=== PATIENT | male | born 1990 | race Native Hawaiian/Other Pacific Islander ===

== ENCOUNTER 2018-12-05 07:50 | Emergency (ER) | payer OTHER ==
[2018-12-05 08:32] VITALS: RESP 18
[2018-12-05 08:48] LABS: BASO # 0.1 K/uL (0.0-0.2); BASO % 0.7 % (0.0-2.0); EOS # 0.1 K/uL (0.0-0.7); EOS % 1.4 % (0.0-4.0); HEMOGLOBIN 17.3 g/dL (12.0-18.0); LYMPH # 4.3 K/uL (1.0-4.3); LYMPH % 43.7 % (20.0-40.0); MEAN CELL VOLUME 79.5 fL (80.0-94.0); MEAN CORPUSCULAR HEMOGLOBIN 26.5 pg (27.0-31.0); MEAN CORPUSCULAR HGB CONC 33.3 g/dL (33.0-37.0); MEAN PLATELET VOLUME 8.1 fL (7.2-11.7); MONO # 0.5 K/uL (0.0-0.8); MONO % 5.2 % (0.0-10.0); NEUT # 4.8 K/uL (1.8-7.0); NRBC % 0.1 % (0.0-2.0); RBC 6.54 Mil/uL (4.40-5.90); RED CELL DISTRIBUTION WIDTH 13.7 % (11.5-14.5); WHITE BLOOD COUNT 9.8 K/uL (4.8-10.8)
[2018-12-05 09:00] LABS: ALB/GLOB RATIO 1.3 (1.0-2.1); ALBUMIN 5.2 g/dL (3.5-5.0); ALT/SGPT 41 U/L (21-72); AST/SGOT 28 U/L (17-59); BLOOD UREA NITROGEN 12 mg/dL (9-20); CALCIUM 9.7 mg/dl (8.6-10.4); GFR NON-AFRICAN AMERICAN > 60
[2018-12-05 09:02] LABS: URINE BILIRUBIN NEGATIVE (NEGATIVE); URINE BLOOD NEGATIVE (NEGATIVE); URINE CLARITY Clear (Clear); URINE COLOR Yellow (YELLOW); URINE GLUCOSE (UA) NORMAL (Normal); URINE LEUKOCYTE ESTERASE NEG Leu/uL (Negative); URINE PROTEIN 1+ mg/dL (NEGATIVE); URINE UROBILINOGEN NORMAL mg/dL (0.2-1.0)
[2018-12-05 09:13] VITALS: O2SAT 100
[2018-12-05 09:17] LABS: CK-MB < 0.22 ng/mL (0.0-3.38)
[2018-12-05 09:20] LABS: BARBITURATES, UR NEGATIVE (NEGATIVE); BENZODIAZEPINES, UR NEGATIVE (NEGATIVE); OPIATES, UR NEGATIVE (NEGATIVE); PHENCYCLIDINE, UR NEGATIVE (NEGATIVE)
--- NOTE | 2018-12-05 10:08 | C.PDOC ---
History Of Present Illness 28 y/o male presents to the ER complaining of left sided chest pain which began in the morning today. Patient states that the pain lasted several minutes with resolution. Patient describes the pain as "heaviness" and notes that the pain is non-radiating. He states that he has some exertional shortness of breath with walking. He notes that he has family history of cardiac disease, his father and grandfather had FL's in their 40's. Denies having hx of similar episodes, fever,chills, cough, palpitations, nausea, vomiting, abdominal pain,hx of anxiety, and hx of smoking. Time Seen by Provider: 12/05/18 08:03 Chief Complaint (Nursing): Shortness Of Breath History Per: Patient History/Exam Limitations: no limitations Onset/Duration Of Symptoms: Days Current Symptoms Are (Timing): Still Present Severity: Moderate Past Medical History Reviewed: Historical Data, Nursing Documentation, Vital Signs Vital Signs: Last Vital Signs Temp 98 F 12/05/18 07:57 Pulse 105 H 12/05/18 09:12 Resp 18 12/05/18 09:12 BP 169/88 H 12/05/18 09:12 Pulse Ox 100 12/05/18 09:12 - Medical History PMH: No Chronic Diseases Family History: States: No Known Family Hx - Social History Hx Alcohol Use: Yes Hx Substance Use: No - Immunization History Hx Tetanus Toxoid Vaccination: No Hx Influenza Vaccination: No Hx Pneumococcal Vaccination: No Review Of Systems Except As Marked, All Systems Reviewed And Found Negative. Constitutional: Negative for: Fever, Chills Cardiovascular: Positive for: Chest Pain Respiratory: Positive for: Shortness of Breath Gastrointestinal: Negative for: Nausea, Vomiting, Abdominal Pain Physical Exam - Physical Exam Appears: Other (anxious) Skin: Normal Color, Warm, Dry Head: Atraumatic, Normacephalic Eye(s): bilateral: Normal Inspection Nose: Normal Oral Mucosa: Moist Neck: Supple Chest: Symmetrical Cardiovascular: Rhythm Regular (with tachycardia) Respiratory: Normal Breath Sounds, No Rales, No Rhonchi, No Wheezing Gastrointestinal/Abdominal: Normal Exam, Soft, No Tenderness, No Guarding, No Rebound Extremity: Normal ROM, Other (no leg edema) Neurological/Psych: Oriented x3, Normal Speech ED Course And Treatment - Laboratory Results Result Diagrams: 12/05/18 08:04 12/05/18 08:04 Lab Results: Troponin I < 0.0120 ng/mL (0.00-0.120) 12/05/18 08:04 Total Bilirubin 0.6 mg/dL (0.2-1.3) 12/05/18 08:04 AST 28 U/L (17-59) 12/05/18 08:04 ALT 41 U/L (21-72) 12/05/18 08:04 Alkaline Phosphatase 130 U/L (38-126) H 12/05/18 08:04 Total Protein 9.0 g/dL (6.3-8.3) H 12/05/18 08:04 Albumin 5.2 g/dL (3.5-5.0) H 12/05/18 08:04 Globulin 3.9 gm/dL (2.2-3.9) 12/05/18 08:04 Albumin/Globulin Ratio 1.3 (1.0-2.1) 12/05/18 08:04 Urine Color Yellow (YELLOW) 12/05/18 08:42 Urine Clarity Clear (Clear) 12/05/18 08:42 Urine pH 5.0 (5.0-8.0) 12/05/18 08:42 Ur Specific [place] 1.017 (1.003-1.030) 12/05/18 08:42 Urine Protein 1+ mg/dL (NEGATIVE) H 12/05/18 08:42 Urine Glucose (UA) Normal mg/dL (Normal) 12/05/18 08:42 Urine Ketones Negative mg/dL (NEGATIVE) 12/05/18 08:42 Urine Blood Negative (NEGATIVE) 12/05/18 08:42 Urine Nitrate Negative (NEGATIVE) 12/05/18 08:42 Urine Bilirubin Negative (NEGATIVE) 12/05/18 08:42 Urine Urobilinogen Normal mg/dL (0.2-1.0) 12/05/18 08:42 Ur Leukocyte Esterase Neg Adam/uL (Negative) 12/05/18 08:42 Urine WBC (Auto) 2 /hpf (0-5) 12/05/18 08:42 Urine RBC (Auto) < 1 /hpf (0-3) 12/05/18 08:42 ECG: Interpreted By Me, Viewed By Me ECG Rhythm: Sinus Tachycardia Interpretation Of ECG: Sinus Tachycardia with normal axises and no acute ST/ T wave changes Rate From EC O2 Sat by Pulse Oximetry: 100 (RA) Pulse Ox Interpretation: Normal - Radiology CXR: Interpreted by Me, Viewed By Me CXR Interpretation: Yes: No Acute Disease, Other (no effusions). No: Infiltrates, Cardiomegaly Progress Note: Labs,UA,EKG, and CXR ordered. Patient treated with Xanax PO. Disposition Counseled Patient/Family Regarding: Studies Performed, Diagnosis, Need For Followup - Disposition Referrals: [facility] [Outside] Disposition: HOME/ ROUTINE Disposition Time: 11:05 Condition: STABLE Additional Instructions: FOLLOW UP WITH YOUR DOCTOR/CLINIC IN 1-2 DAYS USE TYLENOL NEEDED FOR PAIN RETURN TO ER IF YOUR SYMPTOMS RETURN/WORSEN Instructions: Chest Pain That Is Not Caused by the Heart (DC) Forms: [employer] (Turkmen) Print Language: URDU - Clinical Impression Clinical Impression: Non-cardiac chest pain - Scribe Statement The provider has reviewed the documentation as recorded by the Guyibe Ishmael Fagan Provider Attestation: All medical record entries made by the Scribe were at my direction and personally dictated by me. I have reviewed the chart and agree that the record accurately reflects my personal performance of the history, physical exam, medical decision making, and the department course for this patient. I have also personally directed, reviewed, and agree with the discharge instructions and disposition.
[2018-12-05 10:52] LABS: CK-MB < 0.22 ng/mL (0.0-3.38)
--- NOTE | 2018-12-05 10:55 | RAD ---
Chest x-ray single frontal view HISTORY: Shortness of breath. COMPARISON: None available. FINDINGS: Mild venous congestion. Elevated right hemidiaphragm. Right hilar prominence. Heart size within normal limits. IMPRESSION: Mild venous congestion. Elevated right hemidiaphragm. Right hilar prominence.
[2018-12-05 11:14] VITALS: BP 137/89; PULSE 95; TEMP 98.2
--- NOTE | 2018-12-06 12:13 | CARD ---
APPROVED REPORT Date of service: 12/05/2018 EKG Measurement Heart [id number] <Conclusion> Sinus tachycardia Nonspecific T wave abnormality Abnormal ECG
== END 2018-12-05 11:24 | disposition home or self-care (01) ==
LOC: C.ER 07:50
DX: R07.89 Other chest pain (principal)

== ENCOUNTER 2018-12-07 22:10 | Emergency (ER) | payer SELFPAY ==
--- NOTE | 2018-12-08 00:04 | C.PDOC ---
History Of Present Illness 28 year old male presents to the ED for evaluation of chest discomfort, anxiety, and palpitations which began earlier today. Patient was evaluated for the same on 12/05 and had a normal cardiac workup. Patient presents to the ED anxious and tachycardic. He reports sedentary lifestyle and denies fever, chills, shortness of breath. Time Seen by Provider: 12/07/18 22:33 Chief Complaint (Nursing): Chest Pain History Per: Patient History/Exam Limitations: no limitations Onset/Duration Of Symptoms: Hrs Current Symptoms Are (Timing): Still Present Past Medical History Reviewed: Historical Data, Nursing Documentation, Vital Signs Vital Signs: Last Vital Signs Temp 98.4 F 12/07/18 22:17 Pulse 107 H 12/07/18 22:52 Resp 20 12/07/18 22:52 BP 150/100 H 12/07/18 22:52 Pulse Ox 97 12/07/18 22:52 - Medical History PMH: No Chronic Diseases Surgical History: No Surg Hx Family History: States: Unknown Family Hx - Social History Hx Alcohol Use: Yes Hx Substance Use: No - Immunization History Hx Tetanus Toxoid Vaccination: No Hx Influenza Vaccination: No Hx Pneumococcal Vaccination: No Review Of Systems Constitutional: Negative for: Fever, Chills Cardiovascular: Positive for: Other (chest discomfort ) Respiratory: Negative for: Shortness of Breath Psych: Positive for: Anxiety Physical Exam - Physical Exam Appears: Non-toxic, No Acute Distress, Other (anxious ) Skin: Normal Color, Warm, Dry Head: Atraumatic, Normacephalic Eye(s): bilateral: Normal Inspection Oral Mucosa: Moist Neck: Supple Chest: Symmetrical, No Deformity, No Tenderness Cardiovascular: Rhythm Regular, No Murmur, Other (tachycardic ) Respiratory: Normal Breath Sounds, No Rales, No Rhonchi, No Wheezing Extremity: Normal ROM, Capillary Refill (less than 2 seconds) Neurological/Psych: Oriented x3, Normal Speech, Normal Cognition ED Course And Treatment ECG: Interpreted By Me, Viewed By Me ECG Rhythm: Sinus Tachycardia Rate From EC O2 Sat by Pulse Oximetry: 97 (on RA ) Pulse Ox Interpretation: Normal Progress Note: ASA, XANAX 0.25 MG po Reevaluation Time: 00:05 Reassessment Condition: Improved (symptoms resolved) Medical Decision Making Medical Decision Making: anxiety; increased HR and BP anxious person s/s improved with Xanax diet/exercise GERD: obese abd sedentary lifestyle spicy foods Maalox PRN, Protonix PO Disposition Doctor Will See Patient In The: Office Counseled Patient/Family Regarding: Studies Performed, Diagnosis - Disposition Referrals: [facility] [Outside] [facility] [Outside] [facility] [Outside] [facility] [Outside] Jose Alcaraz MD [Staff Provider] - Disposition: HOME/ ROUTINE Disposition Time: 00:06 Condition: GOOD Additional Instructions: GERD: Protonix 20 mg daily (lowers stomach acid) for 3 months diet changes per GERD protocol 45 min power walk 5 days/week Maalox 30 cc's (one tablespoon) 5x'day as needed for chest reflux burning sensation outpatient follow-up with Gastroenterology as needed. Call Dr. Wright for appt as needed Anxiety: increased heart rate and BP with anxiety diet and exercise changes as above Follow-up with Dr. Cassandra Alcaraz for further eval and testing as needed. Instructions: Acid Reflux (Gastroesophageal Reflux Disease), Adult (DC), Anxiety, Adult (DC) Forms: [employer] (Qatari) - Clinical Impression Clinical Impression: Chest discomfort, Anxiety about health - Scribe Statement The provider has reviewed the documentation as recorded by the Scribe (Elizabeth Alcaraz) Provider Attestation: All medical record entries made by the Scribe were at my direction and personally dictated by me. I have reviewed the chart and agree that the record accurately reflects my personal performance of the history, physical exam, medical decision making, and the department course for this patient. I have also personally directed, reviewed, and agree with the discharge instructions and disposition.
[2018-12-08 00:54] VITALS: BP 125/88; PULSE 88; RESP 18; TEMP 98.2
[2018-12-08 07:15] VITALS: O2SAT 97
--- NOTE | 2018-12-11 22:22 | CARD ---
APPROVED REPORT Date of service: 12/07/2018 EKG Measurement Heart [id number] <Conclusion> Sinus tachycardia Abnormal ECG
== END 2018-12-08 00:55 | disposition home or self-care (01) ==
LOC: C.ER 22:10
DX: F41.9 Anxiety disorder, unspecified (principal); R07.89 Other chest pain